=== PATIENT | male | born 1990 | race Two or more races ===

== ENCOUNTER 2022-01-22 10:54 | Inpatient (IN) | payer OTHER ==
[2022-01-22] MEDS ORDERED: MAGNESIUM CITRATE 300 ML BOTTLE PO PRN (12:55)
[2022-01-22] MEDS ORDERED: MAGNESIUM HYDROX 2400MG/30ML ORAL SUSPENSION 30 ML CUP PO PRN (12:55)
[2022-01-22] MEDS ORDERED: LOPERAMIDE HCL 2 MG CAPSULE PO PRN (12:55)
[2022-01-22] MEDS ORDERED: DICYCLOMINE HCL 10 MG CAPSULE PO PRN (12:55)
[2022-01-22] MEDS ORDERED: cloNIDine HCL 0.1 MG TABLET PO ONE (12:55)
[2022-01-22] MEDS ORDERED: IBUPROFEN 400 MG TABLET (FP) PO PRN (12:55)
[2022-01-22] MEDS ORDERED: NALOXONE HCL (KLOXXADO) 8 MG SPRAY NS PRN (12:55)
[2022-01-22] MEDS ORDERED: BENZOCAINE/MENTHOL (CHLORASEPTIC ) LOZENGE MM PRN (12:55)
[2022-01-22] MEDS ORDERED: ONDANSETRON *ODT* 4 MG TABLET SL PRN (12:55)
[2022-01-22] MEDS ORDERED: MAG HYDROX/AL HYDROX/SIMETH 30 ML UNIT-DOSE CUP PO PRN (12:55)
[2022-01-22] MEDS ORDERED: BISMUTH SUBSALICYLATE 262 MG/15 ML BTL PO PRN (12:55)
[2022-01-22] MEDS ORDERED: ACETAMINOPHEN 325 MG TABLET (FP) PO PRN ×2 (12:55)
[2022-01-22] MEDS ORDERED: BUPRENORPHINE HCL 150 MCG, BUPRENORPHINE HCL 75 MCG BC PRN (12:55)
[2022-01-22] MEDS ORDERED: BUPRENORPHINE HCL 150 MCG, BUPRENORPHINE HCL 75 MCG BC ONE (12:55)
[2022-01-22] MEDS ORDERED: ALBUTEROL SO4 HFA INHALER IH PRN (13:01)
[2022-01-22] MEDS ORDERED: BUPRENORPHINE HCL 150 MCG FILM BC ONE (13:22)
[2022-01-22] MEDS ORDERED: BUPRENORPHINE HCL 75 MCG FILM BC ONE (13:22)
[2022-01-22] MEDS ORDERED: cloNIDine HCL 0.1 MG TABLET ONE (13:23)
[2022-01-22] MEDS ORDERED: diazePAM 5 MG TABLET ONE (13:35)
[2022-01-22] MEDS: diazePAM 5 MG TABLET PO PRN ×2 (13:38→20:20)
[2022-01-22] MEDS: hydrOXYzine PAMOATE 25 MG CAPSULE (FP) PO SCH ×3 (15:11→22:50)
[2022-01-22] MEDS: PRENATAL VITAMINS W/ FOLIC ACID TABLET (FP) PO SCH (15:11)
[2022-01-22 15:14] LABS: HEMATOCRIT 45.8 % (35.4-49); HEMOGLOBIN 15.1 GM/dL (11.7-16.9); MCH 27.6 pg (25.7-33.7); MEAN CELL VOLUME 83.7 fl (80-96); MEAN PLT VOLUME 9.8 fl (7.5-11.1); PLATELET COUNT 232 10^3/uL (134-434); RBC 5.47 M/mm3 (4.00-5.60); RDW 13.5 % (11.9-15.9); WHITE BLOOD COUNT 6.5 K/mm3 (4.0-10.0)
[2022-01-22 15:34] LABS: CALCIUM 9.5 mg/dL (8.5-10.1)
[2022-01-22 15:36] LABS: ALBUMIN 3.9 g/dl (3.4-5.0)
[2022-01-22 15:39] LABS: CREATININE 0.7 mg/dL (0.55-1.3)
[2022-01-22 15:40] LABS: BILIRUBIN,TOTAL 0.9 mg/dL (0.2-1); TOT PROT 7.9 g/dl (6.4-8.2)
[2022-01-22] MEDS: cloNIDine HCL 0.1 MG TABLET PO PRN (18:01)
[2022-01-22] MEDS: THIAMINE HCL 100 MG TABLET (FP) PO SCH (22:50)
[2022-01-22] MEDS: MELATONIN 5 MG TABLETS PO SCH (22:50)
[2022-01-23] MEDS ORDERED: BUPRENORPHINE HCL 150 MCG, BUPRENORPHINE HCL 75 MCG BC PRN
[2022-01-23] MEDS: BUPRENORPHINE HCL 150 MCG, BUPRENORPHINE HCL 75 MCG BC SCH ×2 (05:52→17:57)
[2022-01-23] MEDS: hydrOXYzine PAMOATE 25 MG CAPSULE (FP) PO SCH ×5 (05:52→23:16)
[2022-01-23] MEDS: PRENATAL VITAMINS W/ FOLIC ACID TABLET (FP) PO SCH (10:24)
[2022-01-23] MEDS: NICOTINE 14 MG/24 HOURS TOPICAL PATCH TD SCH (10:24)
[2022-01-23] MEDS: diazePAM 5 MG TABLET PO PRN ×3 (10:25→20:40)
[2022-01-23] MEDS: cloNIDine HCL 0.1 MG TABLET PO PRN (16:46)
[2022-01-23] MEDS: MELATONIN 5 MG TABLETS PO SCH (23:16)
[2022-01-23] MEDS: THIAMINE HCL 100 MG TABLET (FP) PO SCH (23:16)
[2022-01-24] MEDS: diazePAM 5 MG TABLET PO PRN ×4 (04:44→21:01)
[2022-01-24] MEDS: cloNIDine HCL 0.1 MG TABLET PO PRN ×4 (04:44→19:11)
[2022-01-24] MEDS: hydrOXYzine PAMOATE 25 MG CAPSULE (FP) PO SCH ×5 (05:52→21:01)
[2022-01-24] MEDS: BUPRENORPHINE HCL 450 MCG FILM BC SCH ×2 (05:52→17:29)
[2022-01-24] MEDS: METHOCARBAMOL 500 MG TABLET PO PRN ×3 (07:35→21:28)
[2022-01-24] MEDS: IBUPROFEN 600 MG TABLET (FP) PO PRN ×2 (07:35→21:28)
[2022-01-24] MEDS: PRENATAL VITAMINS W/ FOLIC ACID TABLET (FP) PO SCH (09:47)
[2022-01-24] MEDS: NICOTINE 14 MG/24 HOURS TOPICAL PATCH TD SCH (09:48)
[2022-01-24] MEDS: NICOTINE 10 MG CARTRIDGE (INHALER) IH PRN ×3 (09:51→18:30)
[2022-01-24] MEDS: THIAMINE HCL 100 MG TABLET (FP) PO SCH (21:01)
[2022-01-24] MEDS: MELATONIN 5 MG TABLETS PO SCH (22:00)
[2022-01-25] MEDS: hydrOXYzine PAMOATE 25 MG CAPSULE (FP) PO SCH ×3 (05:24→13:09)
[2022-01-25] MEDS: diazePAM 5 MG TABLET PO PRN ×2 (05:24→11:33)
[2022-01-25] MEDS: BUPRENORPHINE/NALOXONE 4 MG/1 MG FILM PACKET SL SCH ×2 (05:25→05:46)
[2022-01-25] MEDS: cloNIDine HCL 0.1 MG TABLET PO PRN ×3 (06:29→14:45)
[2022-01-25] MEDS: METHOCARBAMOL 500 MG TABLET PO PRN (07:47)
[2022-01-25] MEDS: NICOTINE 14 MG/24 HOURS TOPICAL PATCH TD SCH (10:16)
[2022-01-25] MEDS: PRENATAL VITAMINS W/ FOLIC ACID TABLET (FP) PO SCH (10:16)
[2022-01-25] MEDS: NICOTINE 10 MG CARTRIDGE (INHALER) IH PRN (10:18)
[2022-01-25] MEDS ORDERED: VENLAFAXINE HCL 75 MG E.R. CAPSULES PO SCH (12:45)
[2022-01-25 13:13] VITALS: BP 96/57; PULSE 107; RESP 18; TEMP 98
[2022-01-26] MEDS ORDERED: BUPRENORPHINE/NALOXONE 8 MG/2 MG FILM PACKET SL ONE (06:00)
== END 2022-01-25 15:01 | DRG 773 ==
LOC: YASAS 10:54 → Y3N 13:40
PROVIDERS: ADMIT Allergy & Immunology; ATTEND Surgery
PROC: HZ2ZZZZ Detoxification Services for Substance Abuse Treatment (ICD-10-PCS; principal; 2022-01-22)
DX: F11.23 Opioid dependence with withdrawal (principal); F17.210 Nicotine dependence, cigarettes, uncomplicated; F19.280 Other psychoactive substance dependence with psychoactive substance-induced anxiety disorder; F19.282 Other psychoactive substance dependence with psychoactive substance-induced sleep disorder; R45.851 Suicidal ideations; J45.909 Unspecified asthma, uncomplicated; Z87.09 Personal history of other diseases of the respiratory system; Z28.311 Partially vaccinated for COVID-19
CPT/HCPCS: 36415; 80053; 85027; 86780; C9803-CS; U0003; U0005

== ENCOUNTER 2022-04-12 12:50 | Inpatient (IN) | payer OTHER ==
[2022-04-12 14:09] VITALS: BMI 22.8
[2022-04-12] MEDS ORDERED: LOPERAMIDE HCL 2 MG CAPSULE PO PRN (15:38)
[2022-04-12] MEDS ORDERED: ACETAMINOPHEN 325 MG TABLET (FP) PO PRN ×2 (15:38)
[2022-04-12] MEDS ORDERED: POLYETHYLENE GLYCOL (HEALTHYLAX) 3350 17 GM PACKET PO PRN (15:38)
[2022-04-12] MEDS ORDERED: BISMUTH SUBSALICYLATE 524 MG/30 ML PO PRN (15:38)
[2022-04-12] MEDS ORDERED: NALOXONE HCL (KLOXXADO) 8 MG SPRAY NS PRN (15:38)
[2022-04-12] MEDS ORDERED: MAG HYDROX/AL HYDROX/SIMETH 30 ML UNIT-DOSE CUP PO PRN (15:38)
[2022-04-12] MEDS ORDERED: MAGNESIUM HYDROX 2400MG/30ML ORAL SUSPENSION 30 ML CUP PO PRN (15:38)
[2022-04-12] MEDS ORDERED: IBUPROFEN 600 MG TABLET (FP) PO PRN (15:38)
[2022-04-12] MEDS ORDERED: ONDANSETRON *ODT* 4 MG TABLET SL PRN (15:38)
[2022-04-12] MEDS ORDERED: BENZOCAINE/MENTHOL (CHLORASEPTIC ) LOZENGE MM PRN (15:38)
[2022-04-12] MEDS ORDERED: NICOTINE 21 MG/24 HOURS TOPICAL PATCH TD PRN (15:38)
[2022-04-12] MEDS ORDERED: DICYCLOMINE HCL 10 MG CAPSULE PO PRN (15:38)
[2022-04-12] MEDS ORDERED: IBUPROFEN 400 MG TABLET (FP) PO PRN (15:38)
[2022-04-12] MEDS ORDERED: BUPRENORPHINE/NALOXONE 4 MG/1 MG FILM PACKET SL SCH (15:45)
[2022-04-12] MEDS ORDERED: BUPRENORPHINE HCL 150 MCG, BUPRENORPHINE HCL 75 MCG BC ONE (16:01)
[2022-04-12] MEDS ORDERED: BUPRENORPHINE HCL 150 MCG, BUPRENORPHINE HCL 75 MCG BC PRN (16:01)
[2022-04-12] MEDS ORDERED: BUPRENORPHINE HCL 150 MCG FILM BC ONE (16:12)
[2022-04-12] MEDS ORDERED: BUPRENORPHINE HCL 75 MCG FILM BC ONE (16:13)
[2022-04-12] MEDS: hydrOXYzine PAMOATE 25 MG CAPSULE (FP) PO PRN (17:27)
[2022-04-12] MEDS: NICOTINE 10 MG CARTRIDGE (INHALER) IH PRN (17:30)
[2022-04-12] MEDS: diazePAM 5 MG TABLET PO PRN (17:30)
[2022-04-12] MEDS: MELATONIN 5 MG TABLETS PO SCH (22:43)
[2022-04-12] MEDS: THIAMINE HCL 100 MG TABLET (FP) PO SCH (22:43)
[2022-04-13] MEDS ORDERED: BUPRENORPHINE HCL 150 MCG, BUPRENORPHINE HCL 75 MCG BC PRN
[2022-04-13] MEDS ORDERED: BUPRENORPHINE/NALOXONE 8 MG/2 MG FILM PACKET SL ONE (06:00)
[2022-04-13] MEDS ORDERED: BUPRENORPHINE HCL 150 MCG, BUPRENORPHINE HCL 75 MCG BC SCH (06:00)
[2022-04-13] MEDS: diazePAM 5 MG TABLET PO PRN (10:37)
[2022-04-13] MEDS: PRENATAL VITAMINS W/ FOLIC ACID TABLET (FP) PO SCH (10:37)
[2022-04-13] MEDS: METHOCARBAMOL 500 MG TABLET PO PRN ×2 (10:37→23:18)
[2022-04-13] MEDS ORDERED: cloNIDine HCL 0.1 MG TABLET PO PRN (10:58)
[2022-04-13] MEDS: NICOTINE 10 MG CARTRIDGE (INHALER) IH PRN (15:30)
[2022-04-13] MEDS: hydrOXYzine PAMOATE 25 MG CAPSULE (FP) PO PRN ×2 (15:37→17:38)
[2022-04-13] MEDS: cloNIDine HCL 0.1 MG TABLET PO PRN ×2 (17:40→23:18)
[2022-04-13] MEDS: MELATONIN 5 MG TABLETS PO SCH ×2 (22:26→23:18)
[2022-04-13] MEDS: THIAMINE HCL 100 MG TABLET (FP) PO SCH ×2 (22:26→23:19)
[2022-04-14] MEDS: cloNIDine HCL 0.1 MG TABLET PO PRN ×3 (05:56→20:29)
[2022-04-14] MEDS ORDERED: BUPRENORPHINE HCL 450 MCG FILM BC SCH (06:00)
[2022-04-14] MEDS: METHOCARBAMOL 500 MG TABLET PO PRN (09:12)
[2022-04-14] MEDS: hydrOXYzine PAMOATE 25 MG CAPSULE (FP) PO PRN (09:12)
[2022-04-14] MEDS: PRENATAL VITAMINS W/ FOLIC ACID TABLET (FP) PO SCH (09:12)
[2022-04-14] MEDS: NICOTINE 10 MG CARTRIDGE (INHALER) IH PRN ×2 (09:14→20:29)
[2022-04-14] MEDS ORDERED: methaDONE HCL 10 MG TABLET (FOR DETOX USE ONLY) PO ONE (10:00)
[2022-04-14 11:49] LABS: HEMATOCRIT 44.8 % (35.4-49); HEMOGLOBIN 14.8 GM/dL (11.7-16.9); MCH 27.4 pg (25.7-33.7); MCHC 33.1 g/dl (32.0-35.9); MEAN CELL VOLUME 82.7 fl (80-96); MEAN PLT VOLUME 9.6 fl (7.5-11.1); PLATELET COUNT 247 10^3/uL (134-434); RBC 5.41 M/mm3 (4.00-5.60); RDW 14.8 % (11.9-15.9); WHITE BLOOD COUNT 10.1 K/mm3 (4.0-10.0)
[2022-04-14 11:59] LABS: ALBUMIN 3.7 g/dl (3.4-5.0); BLOOD UREA NITROGEN 15.1 mg/dL (7-18); CALCIUM 9.4 mg/dL (8.5-10.1); CREATININE 0.7 mg/dL (0.55-1.3)
[2022-04-14 12:01] LABS: TOT PROT 7.3 g/dl (6.4-8.2)
[2022-04-14] MEDS ORDERED: GABAPENTIN 100 MG CAPSULE PO ONE (12:11)
[2022-04-14] MEDS ORDERED: VENLAFAXINE HCL 75 MG E.R. CAPSULES PO SCH (12:15)
[2022-04-14] MEDS: VENLAFAXINE HCL 75 MG E.R. CAPSULES PO SCH (12:37)
[2022-04-14] MEDS: GABAPENTIN 100 MG CAPSULE PO SCH ×2 (15:26→22:18)
[2022-04-14] MEDS: hydrOXYzine PAMOATE 50 MG CAPSULE (FP) PO PRN (17:34)
[2022-04-14] MEDS: SUVOREXANT 10 MG TABLET PO PRN (22:18)
[2022-04-14] MEDS: THIAMINE HCL 100 MG TABLET (FP) PO SCH (22:18)
[2022-04-15] MEDS: GABAPENTIN 100 MG CAPSULE PO SCH ×3 (05:42→22:13)
[2022-04-15] MEDS: NICOTINE 10 MG CARTRIDGE (INHALER) IH PRN ×4 (05:46→22:16)
[2022-04-15] MEDS: cloNIDine HCL 0.1 MG TABLET PO PRN ×2 (05:46→18:36)
[2022-04-15] MEDS ORDERED: BUPRENORPHINE/NALOXONE 4 MG/1 MG FILM PACKET SL SCH (06:00)
[2022-04-15] MEDS: VENLAFAXINE HCL 75 MG E.R. CAPSULES PO SCH (09:21)
[2022-04-15] MEDS: METHOCARBAMOL 500 MG TABLET PO PRN ×2 (09:21→22:13)
[2022-04-15] MEDS: PRENATAL VITAMINS W/ FOLIC ACID TABLET (FP) PO SCH (09:25)
[2022-04-15] MEDS ORDERED: methaDONE HCL 10 MG TABLET (FOR DETOX USE ONLY) PO ONE (10:00)
[2022-04-15] MEDS: hydrOXYzine PAMOATE 50 MG CAPSULE (FP) PO PRN (22:13)
[2022-04-15] MEDS: THIAMINE HCL 100 MG TABLET (FP) PO SCH (22:13)
[2022-04-15] MEDS: SUVOREXANT 10 MG TABLET PO PRN (22:14)
[2022-04-16] MEDS ORDERED: BUPRENORPHINE/NALOXONE 8 MG/2 MG FILM PACKET SL ONE (06:00)
[2022-04-16] MEDS: GABAPENTIN 100 MG CAPSULE PO SCH ×3 (06:13→22:00)
[2022-04-16] MEDS: NICOTINE 10 MG CARTRIDGE (INHALER) IH PRN ×2 (09:12→17:05)
[2022-04-16] MEDS: METHOCARBAMOL 500 MG TABLET PO PRN (09:54)
[2022-04-16] MEDS: VENLAFAXINE HCL 75 MG E.R. CAPSULES PO SCH (09:54)
[2022-04-16] MEDS: PRENATAL VITAMINS W/ FOLIC ACID TABLET (FP) PO SCH (09:54)
[2022-04-16] MEDS ORDERED: methaDONE HCL 10 MG TABLET (FOR DETOX USE ONLY) PO ONE (10:00)
[2022-04-16] MEDS: diazePAM 5 MG TABLET PO PRN ×4 (11:00→23:02)
[2022-04-16] MEDS: NICOTINE POLACRILEX 4 MG GUM BUC PRN (20:51)
[2022-04-16] MEDS: THIAMINE HCL 100 MG TABLET (FP) PO SCH (22:00)
[2022-04-16] MEDS: SUVOREXANT 10 MG TABLET PO PRN (22:03)
[2022-04-17 06:27] VITALS: RESP 18
[2022-04-17] MEDS: GABAPENTIN 100 MG CAPSULE PO SCH ×2 (06:48→13:27)
[2022-04-17] MEDS: diazePAM 5 MG TABLET PO PRN ×2 (06:57→11:02)
[2022-04-17] MEDS: PRENATAL VITAMINS W/ FOLIC ACID TABLET (FP) PO SCH (09:53)
[2022-04-17] MEDS: VENLAFAXINE HCL 75 MG E.R. CAPSULES PO SCH (09:54)
[2022-04-17] MEDS ORDERED: methaDONE HCL 10 MG TABLET (FOR DETOX USE ONLY) PO ONE (10:00)
[2022-04-17 13:55] VITALS: BP 106/67; PULSE 103; TEMP 98
[2022-04-17] MEDS: NICOTINE 10 MG CARTRIDGE (INHALER) IH PRN (15:09)
[2022-04-17] MEDS: NICOTINE POLACRILEX 4 MG GUM BUC PRN (15:09)
== END 2022-04-17 15:39 | disposition other institution (70) | DRG 773 ==
LOC: YASAS 12:50 → Y6N 16:23
PROVIDERS: ADMIT Allergy & Immunology; ATTEND Surgery
PROC: HZ2ZZZZ Detoxification Services for Substance Abuse Treatment (ICD-10-PCS; principal; 2022-04-12)
DX: F11.23 Opioid dependence with withdrawal (principal); F17.210 Nicotine dependence, cigarettes, uncomplicated; F19.280 Other psychoactive substance dependence with psychoactive substance-induced anxiety disorder; F19.282 Other psychoactive substance dependence with psychoactive substance-induced sleep disorder; F40.10 Social phobia, unspecified; J45.20 Mild intermittent asthma, uncomplicated; Z51.81 Encounter for therapeutic drug level monitoring; Z56.0 Unemployment, unspecified
CPT/HCPCS: 36415; 80053; 85027; 86780; 87811; C9803-CS; U0003; U0005

== ENCOUNTER 2022-04-17 15:42 | Inpatient (IN) | payer OTHER ==
[2022-04-17] MEDS ORDERED: MAGNESIUM HYDROX 2400MG/30ML ORAL SUSPENSION 30 ML CUP PO PRN (16:17)
[2022-04-17] MEDS ORDERED: POLYETHYLENE GLYCOL (HEALTHYLAX) 3350 17 GM PACKET PO PRN (16:17)
[2022-04-17] MEDS ORDERED: guaiFENesin 200 MG/10 ML 10 ML UNIT-DOSE CUPS PO PRN (16:17)
[2022-04-17] MEDS ORDERED: P-EPHED 60MG/TRIPROLIDI 2.5MG TABLET PO PRN (16:17)
[2022-04-17] MEDS ORDERED: BENZOCAINE/MENTHOL (CHLORASEPTIC ) LOZENGE MM PRN (16:17)
[2022-04-17] MEDS ORDERED: LOPERAMIDE HCL 2 MG CAPSULE PO PRN (16:17)
[2022-04-17] MEDS ORDERED: IBUPROFEN 400 MG TABLET (FP) PO PRN (16:17)
[2022-04-17] MEDS ORDERED: ACETAMINOPHEN 325 MG TABLET (FP) PO PRN (16:17)
[2022-04-17] MEDS ORDERED: MAG HYDROX/AL HYDROX/SIMETH 30 ML UNIT-DOSE CUP PO PRN (16:17)
[2022-04-17] MEDS: NICOTINE 10 MG CARTRIDGE (INHALER) IH PRN (18:19)
[2022-04-17] MEDS: hydrOXYzine PAMOATE 25 MG CAPSULE (FP) PO PRN (18:19)
[2022-04-17] MEDS: THIAMINE HCL 100 MG TABLET (FP) PO SCH (21:33)
[2022-04-17] MEDS ORDERED: MELATONIN 5 MG TABLETS PO SCH (22:00)
[2022-04-18] MEDS: hydrOXYzine PAMOATE 25 MG CAPSULE (FP) PO PRN (02:40)
[2022-04-18] MEDS: NICOTINE 7 MG/24 HOURS TOPICAL PATCH TD SCH (09:46)
[2022-04-18] MEDS: PRENATAL VITAMINS W/ FOLIC ACID TABLET (FP) PO SCH (09:46)
[2022-04-18] MEDS: NICOTINE 10 MG CARTRIDGE (INHALER) IH PRN ×2 (09:47→21:14)
[2022-04-18] MEDS: hydrOXYzine PAMOATE 50 MG CAPSULE (FP) PO PRN ×3 (10:19→21:15)
[2022-04-18] MEDS: VENLAFAXINE HCL 75 MG E.R. CAPSULES PO SCH (10:19)
[2022-04-18] MEDS: GABAPENTIN 100 MG CAPSULE PO SCH ×2 (13:07→21:15)
[2022-04-18] MEDS: BUPRENORPHINE/NALOXONE 2 MG/0.5 MG FILM PACKET SL SCH (14:44)
[2022-04-18] MEDS: SUVOREXANT 10 MG TABLET PO PRN (21:15)
[2022-04-18] MEDS: THIAMINE HCL 100 MG TABLET (FP) PO SCH (21:15)
[2022-04-19] MEDS: GABAPENTIN 100 MG CAPSULE PO SCH ×3 (06:53→21:21)
[2022-04-19] MEDS: hydrOXYzine PAMOATE 50 MG CAPSULE (FP) PO PRN ×3 (08:04→21:22)
[2022-04-19] MEDS: NICOTINE 10 MG CARTRIDGE (INHALER) IH PRN ×3 (08:04→21:22)
[2022-04-19] MEDS: NICOTINE 7 MG/24 HOURS TOPICAL PATCH TD SCH (09:27)
[2022-04-19] MEDS: PRENATAL VITAMINS W/ FOLIC ACID TABLET (FP) PO SCH (09:27)
[2022-04-19] MEDS: BUPRENORPHINE/NALOXONE 2 MG/0.5 MG FILM PACKET SL SCH ×2 (09:27→17:59)
[2022-04-19] MEDS: VENLAFAXINE HCL 75 MG E.R. CAPSULES PO SCH (09:27)
[2022-04-19] MEDS: THIAMINE HCL 100 MG TABLET (FP) PO SCH (21:21)
[2022-04-19] MEDS: SUVOREXANT 10 MG TABLET PO PRN (21:22)
[2022-04-20] MEDS: GABAPENTIN 100 MG CAPSULE PO SCH ×3 (07:39→21:45)
[2022-04-20] MEDS: BUPRENORPHINE/NALOXONE 2 MG/0.5 MG FILM PACKET SL SCH (07:39)
[2022-04-20] MEDS: NICOTINE 10 MG CARTRIDGE (INHALER) IH PRN ×3 (08:57→21:45)
[2022-04-20] MEDS: NICOTINE 7 MG/24 HOURS TOPICAL PATCH TD SCH (09:45)
[2022-04-20] MEDS: VENLAFAXINE HCL 75 MG E.R. CAPSULES PO SCH (09:45)
[2022-04-20] MEDS: PRENATAL VITAMINS W/ FOLIC ACID TABLET (FP) PO SCH (09:46)
[2022-04-20] MEDS: hydrOXYzine PAMOATE 50 MG CAPSULE (FP) PO PRN ×2 (10:32→19:56)
[2022-04-20] MEDS: BUPRENORPHINE/NALOXONE 4 MG/1 MG FILM PACKET SL SCH (17:58)
[2022-04-20] MEDS: THIAMINE HCL 100 MG TABLET (FP) PO SCH (21:45)
[2022-04-20] MEDS: SUVOREXANT 10 MG TABLET PO PRN (21:47)
[2022-04-21] MEDS: BUPRENORPHINE/NALOXONE 4 MG/1 MG FILM PACKET SL SCH ×2 (07:39→17:59)
[2022-04-21] MEDS: GABAPENTIN 100 MG CAPSULE PO SCH (07:39)
[2022-04-21] MEDS: NICOTINE 10 MG CARTRIDGE (INHALER) IH PRN ×3 (09:58→21:15)
[2022-04-21] MEDS: PRENATAL VITAMINS W/ FOLIC ACID TABLET (FP) PO SCH (09:58)
[2022-04-21] MEDS: VENLAFAXINE HCL 75 MG E.R. CAPSULES PO SCH (09:58)
[2022-04-21] MEDS: NICOTINE 7 MG/24 HOURS TOPICAL PATCH TD SCH (09:58)
[2022-04-21] MEDS: hydrOXYzine PAMOATE 50 MG CAPSULE (FP) PO PRN (11:46)
[2022-04-21] MEDS: GABAPENTIN 300 MG CAPSULE PO SCH ×2 (13:40→21:14)
[2022-04-21] MEDS ORDERED: NICOTINE 7 MG/24 HOURS TOPICAL PATCH TD PRN (14:41)
[2022-04-21] MEDS: THIAMINE HCL 100 MG TABLET (FP) PO SCH (21:13)
[2022-04-21] MEDS: SUVOREXANT 10 MG TABLET PO PRN (21:14)
[2022-04-22] MEDS: GABAPENTIN 300 MG CAPSULE PO SCH ×3 (07:32→21:06)
[2022-04-22] MEDS: BUPRENORPHINE/NALOXONE 4 MG/1 MG FILM PACKET SL SCH ×2 (07:32→18:15)
[2022-04-22] MEDS: NICOTINE 10 MG CARTRIDGE (INHALER) IH PRN ×4 (07:33→22:26)
[2022-04-22] MEDS: VENLAFAXINE HCL 75 MG E.R. CAPSULES PO SCH (09:34)
[2022-04-22] MEDS: PRENATAL VITAMINS W/ FOLIC ACID TABLET (FP) PO SCH (09:34)
[2022-04-22] MEDS: hydrOXYzine PAMOATE 50 MG CAPSULE (FP) PO PRN ×2 (12:24→21:06)
[2022-04-22] MEDS: THIAMINE HCL 100 MG TABLET (FP) PO SCH (21:06)
[2022-04-22] MEDS: SUVOREXANT 10 MG TABLET PO PRN (21:06)
[2022-04-23] MEDS: GABAPENTIN 300 MG CAPSULE PO SCH ×3 (07:39→21:26)
[2022-04-23] MEDS: BUPRENORPHINE/NALOXONE 4 MG/1 MG FILM PACKET SL SCH ×2 (07:39→18:12)
[2022-04-23] MEDS: NICOTINE 10 MG CARTRIDGE (INHALER) IH PRN ×3 (08:01→21:27)
[2022-04-23] MEDS: PRENATAL VITAMINS W/ FOLIC ACID TABLET (FP) PO SCH (10:03)
[2022-04-23] MEDS: VENLAFAXINE HCL 75 MG E.R. CAPSULES PO SCH (10:03)
[2022-04-23] MEDS: hydrOXYzine PAMOATE 50 MG CAPSULE (FP) PO PRN ×2 (10:05→21:26)
[2022-04-23] MEDS: THIAMINE HCL 100 MG TABLET (FP) PO SCH (21:26)
[2022-04-23] MEDS: SUVOREXANT 10 MG TABLET PO PRN (21:26)
[2022-04-24] MEDS: BUPRENORPHINE/NALOXONE 4 MG/1 MG FILM PACKET SL SCH ×2 (07:49→18:18)
[2022-04-24] MEDS: GABAPENTIN 300 MG CAPSULE PO SCH ×3 (07:49→21:25)
[2022-04-24] MEDS: VENLAFAXINE HCL 75 MG E.R. CAPSULES PO SCH (10:02)
[2022-04-24] MEDS: NICOTINE 10 MG CARTRIDGE (INHALER) IH PRN ×4 (10:03→21:26)
[2022-04-24] MEDS: PRENATAL VITAMINS W/ FOLIC ACID TABLET (FP) PO SCH (10:03)
[2022-04-24] MEDS: SUVOREXANT 10 MG TABLET PO PRN (21:25)
[2022-04-24] MEDS: THIAMINE HCL 100 MG TABLET (FP) PO SCH (21:25)
[2022-04-24] MEDS: hydrOXYzine PAMOATE 50 MG CAPSULE (FP) PO PRN (21:25)
[2022-04-25] MEDS: BUPRENORPHINE/NALOXONE 4 MG/1 MG FILM PACKET SL SCH ×2 (07:52→18:22)
[2022-04-25] MEDS: NICOTINE 10 MG CARTRIDGE (INHALER) IH PRN ×3 (07:53→18:23)
[2022-04-25] MEDS: GABAPENTIN 300 MG CAPSULE PO SCH ×3 (07:53→21:15)
[2022-04-25] MEDS: PRENATAL VITAMINS W/ FOLIC ACID TABLET (FP) PO SCH (09:40)
[2022-04-25] MEDS: VENLAFAXINE HCL 75 MG E.R. CAPSULES PO SCH (09:40)
[2022-04-25] MEDS: hydrOXYzine PAMOATE 50 MG CAPSULE (FP) PO PRN (21:15)
[2022-04-25] MEDS: THIAMINE HCL 100 MG TABLET (FP) PO SCH (21:15)
[2022-04-25] MEDS: SUVOREXANT 10 MG TABLET PO PRN (21:16)
[2022-04-26] MEDS: GABAPENTIN 300 MG CAPSULE PO SCH ×3 (07:54→21:15)
[2022-04-26] MEDS: BUPRENORPHINE/NALOXONE 4 MG/1 MG FILM PACKET SL SCH ×2 (07:54→18:25)
[2022-04-26] MEDS: NICOTINE 10 MG CARTRIDGE (INHALER) IH PRN ×3 (09:38→21:14)
[2022-04-26] MEDS: PRENATAL VITAMINS W/ FOLIC ACID TABLET (FP) PO SCH (09:38)
[2022-04-26] MEDS: VENLAFAXINE HCL 75 MG E.R. CAPSULES PO SCH (09:38)
[2022-04-26] MEDS: hydrOXYzine PAMOATE 50 MG CAPSULE (FP) PO PRN ×2 (12:09→21:16)
[2022-04-26] MEDS: THIAMINE HCL 100 MG TABLET (FP) PO SCH (21:14)
[2022-04-26] MEDS: SUVOREXANT 10 MG TABLET PO PRN ×2 (21:15)
[2022-04-27] MEDS: BUPRENORPHINE/NALOXONE 4 MG/1 MG FILM PACKET SL SCH ×2 (07:48→18:05)
[2022-04-27] MEDS: GABAPENTIN 300 MG CAPSULE PO SCH ×3 (07:48→21:15)
[2022-04-27] MEDS: PRENATAL VITAMINS W/ FOLIC ACID TABLET (FP) PO SCH (09:57)
[2022-04-27] MEDS: VENLAFAXINE HCL 75 MG E.R. CAPSULES PO SCH (09:57)
[2022-04-27] MEDS: NICOTINE 10 MG CARTRIDGE (INHALER) IH PRN ×3 (12:42→21:15)
[2022-04-27] MEDS: hydrOXYzine PAMOATE 50 MG CAPSULE (FP) PO PRN (21:15)
[2022-04-27] MEDS: SUVOREXANT 10 MG TABLET PO PRN (21:15)
[2022-04-27] MEDS: THIAMINE HCL 100 MG TABLET (FP) PO SCH (21:15)
[2022-04-28] MEDS: BUPRENORPHINE/NALOXONE 4 MG/1 MG FILM PACKET SL SCH ×2 (07:41→18:04)
[2022-04-28] MEDS: GABAPENTIN 300 MG CAPSULE PO SCH ×3 (07:41→21:15)
[2022-04-28] MEDS: NICOTINE 10 MG CARTRIDGE (INHALER) IH PRN ×2 (07:42→13:31)
[2022-04-28] MEDS: VENLAFAXINE HCL 75 MG E.R. CAPSULES PO SCH (10:02)
[2022-04-28] MEDS: PRENATAL VITAMINS W/ FOLIC ACID TABLET (FP) PO SCH (10:02)
[2022-04-28] MEDS: hydrOXYzine PAMOATE 50 MG CAPSULE (FP) PO PRN (21:14)
[2022-04-28] MEDS: THIAMINE HCL 100 MG TABLET (FP) PO SCH (21:14)
[2022-04-28] MEDS: SUVOREXANT 10 MG TABLET PO PRN (21:15)
[2022-04-29] MEDS: BUPRENORPHINE/NALOXONE 4 MG/1 MG FILM PACKET SL SCH ×2 (07:53→18:07)
[2022-04-29] MEDS: GABAPENTIN 300 MG CAPSULE PO SCH ×3 (07:53→21:25)
[2022-04-29] MEDS: NICOTINE 10 MG CARTRIDGE (INHALER) IH PRN ×3 (07:56→21:26)
[2022-04-29] MEDS: VENLAFAXINE HCL 75 MG E.R. CAPSULES PO SCH (09:42)
[2022-04-29] MEDS: PRENATAL VITAMINS W/ FOLIC ACID TABLET (FP) PO SCH (09:42)
[2022-04-29] MEDS: THIAMINE HCL 100 MG TABLET (FP) PO SCH (21:25)
[2022-04-29] MEDS: hydrOXYzine PAMOATE 50 MG CAPSULE (FP) PO PRN (21:25)
[2022-04-29] MEDS: SUVOREXANT 10 MG TABLET PO PRN (21:26)
[2022-04-30] MEDS: BUPRENORPHINE/NALOXONE 4 MG/1 MG FILM PACKET SL SCH ×2 (07:55→18:06)
[2022-04-30] MEDS: GABAPENTIN 300 MG CAPSULE PO SCH ×3 (07:56→21:30)
[2022-04-30] MEDS: NICOTINE 10 MG CARTRIDGE (INHALER) IH PRN ×3 (09:58→21:30)
[2022-04-30] MEDS: VENLAFAXINE HCL 75 MG E.R. CAPSULES PO SCH (09:58)
[2022-04-30] MEDS: PRENATAL VITAMINS W/ FOLIC ACID TABLET (FP) PO SCH (09:59)
[2022-04-30] MEDS: hydrOXYzine PAMOATE 50 MG CAPSULE (FP) PO PRN (21:30)
[2022-04-30] MEDS: SUVOREXANT 10 MG TABLET PO PRN (21:31)
[2022-04-30] MEDS: THIAMINE HCL 100 MG TABLET (FP) PO SCH (21:31)
[2022-05-01] MEDS: BUPRENORPHINE/NALOXONE 4 MG/1 MG FILM PACKET SL SCH ×2 (07:41→18:03)
[2022-05-01] MEDS: GABAPENTIN 300 MG CAPSULE PO SCH ×3 (07:42→21:13)
[2022-05-01] MEDS: PRENATAL VITAMINS W/ FOLIC ACID TABLET (FP) PO SCH (10:02)
[2022-05-01] MEDS: VENLAFAXINE HCL 75 MG E.R. CAPSULES PO SCH (10:02)
[2022-05-01] MEDS: NICOTINE 10 MG CARTRIDGE (INHALER) IH PRN ×2 (12:30→18:03)
[2022-05-01] MEDS: hydrOXYzine PAMOATE 50 MG CAPSULE (FP) PO PRN (21:13)
[2022-05-01] MEDS: THIAMINE HCL 100 MG TABLET (FP) PO SCH (21:13)
[2022-05-01] MEDS: SUVOREXANT 10 MG TABLET PO PRN (21:14)
[2022-05-02] MEDS: BUPRENORPHINE/NALOXONE 4 MG/1 MG FILM PACKET SL SCH ×2 (06:40→18:35)
[2022-05-02] MEDS: GABAPENTIN 300 MG CAPSULE PO SCH ×3 (06:41→21:13)
[2022-05-02] MEDS: PRENATAL VITAMINS W/ FOLIC ACID TABLET (FP) PO SCH (10:13)
[2022-05-02] MEDS: VENLAFAXINE HCL 75 MG E.R. CAPSULES PO SCH (10:13)
[2022-05-02] MEDS: NICOTINE 10 MG CARTRIDGE (INHALER) IH PRN (12:37)
[2022-05-02] MEDS: THIAMINE HCL 100 MG TABLET (FP) PO SCH (21:13)
[2022-05-02] MEDS: hydrOXYzine PAMOATE 50 MG CAPSULE (FP) PO PRN (21:13)
[2022-05-03] MEDS: BUPRENORPHINE/NALOXONE 4 MG/1 MG FILM PACKET SL SCH ×2 (07:08→18:13)
[2022-05-03] MEDS: GABAPENTIN 300 MG CAPSULE PO SCH ×3 (07:08→21:12)
[2022-05-03] MEDS: PRENATAL VITAMINS W/ FOLIC ACID TABLET (FP) PO SCH (09:50)
[2022-05-03] MEDS: VENLAFAXINE HCL 75 MG E.R. CAPSULES PO SCH (09:50)
[2022-05-03] MEDS: NICOTINE 10 MG CARTRIDGE (INHALER) IH PRN (12:42)
[2022-05-03] MEDS: THIAMINE HCL 100 MG TABLET (FP) PO SCH (21:12)
[2022-05-03] MEDS: SUVOREXANT 10 MG TABLET PO PRN (21:12)
[2022-05-04] MEDS: BUPRENORPHINE/NALOXONE 4 MG/1 MG FILM PACKET SL SCH ×2 (08:05→17:57)
[2022-05-04] MEDS: GABAPENTIN 300 MG CAPSULE PO SCH ×3 (08:06→21:40)
[2022-05-04] MEDS: VENLAFAXINE HCL 75 MG E.R. CAPSULES PO SCH (09:59)
[2022-05-04] MEDS: PRENATAL VITAMINS W/ FOLIC ACID TABLET (FP) PO SCH (09:59)
[2022-05-04] MEDS: NICOTINE 10 MG CARTRIDGE (INHALER) IH PRN ×2 (12:27→17:59)
[2022-05-04] MEDS: THIAMINE HCL 100 MG TABLET (FP) PO SCH (21:40)
[2022-05-04] MEDS: hydrOXYzine PAMOATE 50 MG CAPSULE (FP) PO PRN (21:40)
[2022-05-04] MEDS: SUVOREXANT 10 MG TABLET PO PRN (21:40)
[2022-05-05] MEDS: GABAPENTIN 300 MG CAPSULE PO SCH ×3 (08:02→21:26)
[2022-05-05] MEDS: BUPRENORPHINE/NALOXONE 4 MG/1 MG FILM PACKET SL SCH ×2 (08:02→17:42)
[2022-05-05] MEDS: VENLAFAXINE HCL 75 MG E.R. CAPSULES PO SCH (10:03)
[2022-05-05] MEDS: PRENATAL VITAMINS W/ FOLIC ACID TABLET (FP) PO SCH (10:03)
[2022-05-05] MEDS: NICOTINE 10 MG CARTRIDGE (INHALER) IH PRN ×2 (14:54→17:42)
[2022-05-05] MEDS: THIAMINE HCL 100 MG TABLET (FP) PO SCH (21:26)
[2022-05-05] MEDS: hydrOXYzine PAMOATE 50 MG CAPSULE (FP) PO PRN (21:26)
[2022-05-05] MEDS: SUVOREXANT 10 MG TABLET PO PRN (21:27)
[2022-05-06] MEDS: GABAPENTIN 300 MG CAPSULE PO SCH ×3 (07:39→21:26)
[2022-05-06] MEDS: BUPRENORPHINE/NALOXONE 4 MG/1 MG FILM PACKET SL SCH ×2 (07:39→17:58)
[2022-05-06] MEDS: VENLAFAXINE HCL 75 MG E.R. CAPSULES PO SCH (09:41)
[2022-05-06] MEDS: PRENATAL VITAMINS W/ FOLIC ACID TABLET (FP) PO SCH (09:41)
[2022-05-06] MEDS: NICOTINE 10 MG CARTRIDGE (INHALER) IH PRN ×2 (15:34→21:27)
[2022-05-06] MEDS: hydrOXYzine PAMOATE 50 MG CAPSULE (FP) PO PRN (21:26)
[2022-05-06] MEDS: SUVOREXANT 10 MG TABLET PO PRN (21:26)
[2022-05-06] MEDS: THIAMINE HCL 100 MG TABLET (FP) PO SCH (21:26)
[2022-05-07] MEDS: BUPRENORPHINE/NALOXONE 4 MG/1 MG FILM PACKET SL SCH ×2 (07:33→18:05)
[2022-05-07] MEDS: GABAPENTIN 300 MG CAPSULE PO SCH ×3 (07:33→21:20)
[2022-05-07] MEDS: PRENATAL VITAMINS W/ FOLIC ACID TABLET (FP) PO SCH (10:17)
[2022-05-07] MEDS: VENLAFAXINE HCL 75 MG E.R. CAPSULES PO SCH (10:17)
[2022-05-07] MEDS: NICOTINE 10 MG CARTRIDGE (INHALER) IH PRN (18:05)
[2022-05-07] MEDS: THIAMINE HCL 100 MG TABLET (FP) PO SCH (21:20)
[2022-05-07] MEDS: SUVOREXANT 10 MG TABLET PO PRN (21:20)
[2022-05-07] MEDS: hydrOXYzine PAMOATE 50 MG CAPSULE (FP) PO PRN (21:20)
[2022-05-08] MEDS: GABAPENTIN 300 MG CAPSULE PO SCH ×3 (07:38→21:41)
[2022-05-08] MEDS: BUPRENORPHINE/NALOXONE 4 MG/1 MG FILM PACKET SL SCH ×2 (07:38→18:39)
[2022-05-08] MEDS: VENLAFAXINE HCL 75 MG E.R. CAPSULES PO SCH (10:20)
[2022-05-08] MEDS: PRENATAL VITAMINS W/ FOLIC ACID TABLET (FP) PO SCH (10:20)
[2022-05-08] MEDS: NICOTINE 10 MG CARTRIDGE (INHALER) IH PRN ×2 (14:20→21:40)
[2022-05-08] MEDS: THIAMINE HCL 100 MG TABLET (FP) PO SCH (21:41)
[2022-05-08] MEDS: hydrOXYzine PAMOATE 50 MG CAPSULE (FP) PO PRN (21:41)
[2022-05-08] MEDS: SUVOREXANT 10 MG TABLET PO PRN (21:41)
[2022-05-09] MEDS: GABAPENTIN 300 MG CAPSULE PO SCH ×3 (07:45→21:33)
[2022-05-09] MEDS: BUPRENORPHINE/NALOXONE 4 MG/1 MG FILM PACKET SL SCH ×2 (07:46→18:03)
[2022-05-09] MEDS: VENLAFAXINE HCL 75 MG E.R. CAPSULES PO SCH (09:51)
[2022-05-09] MEDS: PRENATAL VITAMINS W/ FOLIC ACID TABLET (FP) PO SCH (09:51)
[2022-05-09] MEDS: NICOTINE 10 MG CARTRIDGE (INHALER) IH PRN ×2 (16:58→21:33)
[2022-05-09] MEDS: THIAMINE HCL 100 MG TABLET (FP) PO SCH (21:33)
[2022-05-09] MEDS: hydrOXYzine PAMOATE 50 MG CAPSULE (FP) PO PRN (21:33)
[2022-05-09] MEDS: SUVOREXANT 10 MG TABLET PO PRN (21:33)
[2022-05-10] MEDS: BUPRENORPHINE/NALOXONE 4 MG/1 MG FILM PACKET SL SCH ×2 (07:44→18:15)
[2022-05-10] MEDS: GABAPENTIN 300 MG CAPSULE PO SCH ×3 (07:45→21:19)
[2022-05-10] MEDS: PRENATAL VITAMINS W/ FOLIC ACID TABLET (FP) PO SCH (09:50)
[2022-05-10] MEDS: VENLAFAXINE HCL 75 MG E.R. CAPSULES PO SCH (09:50)
[2022-05-10] MEDS: THIAMINE HCL 100 MG TABLET (FP) PO SCH (21:19)
[2022-05-10] MEDS: SUVOREXANT 10 MG TABLET PO PRN (21:19)
[2022-05-10] MEDS: NICOTINE 10 MG CARTRIDGE (INHALER) IH PRN (21:20)
[2022-05-10] MEDS: hydrOXYzine PAMOATE 50 MG CAPSULE (FP) PO PRN (21:21)
[2022-05-11] MEDS: BUPRENORPHINE/NALOXONE 4 MG/1 MG FILM PACKET SL SCH ×2 (06:38→18:50)
[2022-05-11] MEDS: GABAPENTIN 300 MG CAPSULE PO SCH ×3 (06:38→21:21)
[2022-05-11] MEDS: NICOTINE 10 MG CARTRIDGE (INHALER) IH PRN (09:44)
[2022-05-11] MEDS: PRENATAL VITAMINS W/ FOLIC ACID TABLET (FP) PO SCH (09:44)
[2022-05-11] MEDS: VENLAFAXINE HCL 75 MG E.R. CAPSULES PO SCH (09:44)
[2022-05-11] MEDS: THIAMINE HCL 100 MG TABLET (FP) PO SCH (21:20)
[2022-05-11] MEDS: hydrOXYzine PAMOATE 50 MG CAPSULE (FP) PO PRN (21:21)
[2022-05-11] MEDS: SUVOREXANT 10 MG TABLET PO PRN (21:21)
[2022-05-12] MEDS: BUPRENORPHINE/NALOXONE 4 MG/1 MG FILM PACKET SL SCH ×2 (07:42→18:11)
[2022-05-12] MEDS: GABAPENTIN 300 MG CAPSULE PO SCH ×3 (07:42→21:04)
[2022-05-12] MEDS: NICOTINE 10 MG CARTRIDGE (INHALER) IH PRN (08:57)
[2022-05-12] MEDS: PRENATAL VITAMINS W/ FOLIC ACID TABLET (FP) PO SCH (09:45)
[2022-05-12] MEDS: VENLAFAXINE HCL 75 MG E.R. CAPSULES PO SCH (09:45)
[2022-05-12] MEDS: hydrOXYzine PAMOATE 50 MG CAPSULE (FP) PO PRN (21:04)
[2022-05-12] MEDS: THIAMINE HCL 100 MG TABLET (FP) PO SCH (21:04)
[2022-05-12] MEDS: SUVOREXANT 10 MG TABLET PO PRN (21:05)
[2022-05-13] MEDS: BUPRENORPHINE/NALOXONE 4 MG/1 MG FILM PACKET SL SCH ×2 (07:46→18:06)
[2022-05-13] MEDS: GABAPENTIN 300 MG CAPSULE PO SCH ×3 (07:46→21:09)
[2022-05-13 08:31] VITALS: RESP 17
[2022-05-13] MEDS: PRENATAL VITAMINS W/ FOLIC ACID TABLET (FP) PO SCH (09:43)
[2022-05-13] MEDS: VENLAFAXINE HCL 75 MG E.R. CAPSULES PO SCH (09:43)
[2022-05-13] MEDS: NICOTINE 10 MG CARTRIDGE (INHALER) IH PRN ×2 (12:29→21:10)
[2022-05-13] MEDS: THIAMINE HCL 100 MG TABLET (FP) PO SCH (21:08)
[2022-05-13] MEDS: SUVOREXANT 10 MG TABLET PO PRN (21:09)
[2022-05-13] MEDS: hydrOXYzine PAMOATE 50 MG CAPSULE (FP) PO PRN (21:09)
[2022-05-14] MEDS: BUPRENORPHINE/NALOXONE 4 MG/1 MG FILM PACKET SL SCH (07:51)
[2022-05-14] MEDS: GABAPENTIN 300 MG CAPSULE PO SCH (07:51)
[2022-05-14 08:45] VITALS: BP 106/66; PULSE 72; TEMP 98
[2022-05-14] MEDS: VENLAFAXINE HCL 75 MG E.R. CAPSULES PO SCH (09:10)
[2022-05-14] MEDS: PRENATAL VITAMINS W/ FOLIC ACID TABLET (FP) PO SCH (09:10)
[2022-05-14] MEDS: NICOTINE 10 MG CARTRIDGE (INHALER) IH PRN (09:10)
== END 2022-05-14 09:36 | disposition home or self-care (01) | DRG 772 ==
LOC: YASAS 15:42 → Y3E 15:43
PROVIDERS: ADMIT Allergy & Immunology; ATTEND Psychiatry & Neurology Pain Medicine
PROC: HZ42ZZZ Group Counseling for Substance Abuse Treatment, Cognitive-Behavioral (ICD-10-PCS; principal; 2022-04-17)
DX: F11.20 Opioid dependence, uncomplicated (principal); F17.210 Nicotine dependence, cigarettes, uncomplicated; F19.280 Other psychoactive substance dependence with psychoactive substance-induced anxiety disorder; F19.282 Other psychoactive substance dependence with psychoactive substance-induced sleep disorder; F40.10 Social phobia, unspecified; F41.9 Anxiety disorder, unspecified; J45.20 Mild intermittent asthma, uncomplicated

== ENCOUNTER 2023-04-27 11:51 | Inpatient (IN) | payer OTHER ==
[2023-04-27 12:19] VITALS: BMI 19.5
[2023-04-27] MEDS ORDERED: IBUPROFEN 400 MG TABLET (FP) PO PRN (13:15)
[2023-04-27] MEDS ORDERED: NALOXONE HCL 0.4 MG/ML VIAL IM PRN (13:15)
[2023-04-27] MEDS ORDERED: ONDANSETRON *ODT* 4 MG TABLET SL PRN (13:15)
[2023-04-27] MEDS ORDERED: BISMUTH SUBSALICYLATE 524 MG/30 ML PO PRN (13:15)
[2023-04-27] MEDS ORDERED: MAGNESIUM HYDROX 2400MG/30ML ORAL SUSPENSION 30 ML CUP PO PRN (13:15)
[2023-04-27] MEDS ORDERED: guaiFENesin 600 MG TABLET.ER (FP) PO PRN (13:15)
[2023-04-27] MEDS ORDERED: BENZOCAINE/MENTHOL (CHLORASEPTIC ) LOZENGE MM PRN (13:15)
[2023-04-27] MEDS ORDERED: POLYETHYLENE GLYCOL (HEALTHYLAX) 3350 17 GM PACKET PO PRN (13:15)
[2023-04-27] MEDS ORDERED: LOPERAMIDE HCL 2 MG CAPSULE PO PRN (13:15)
[2023-04-27] MEDS ORDERED: NALOXONE HCL (KLOXXADO) 8 MG SPRAY NS PRN (13:15)
[2023-04-27] MEDS ORDERED: BENZONATATE 200 MG CAPSULE PO PRN (13:15)
[2023-04-27] MEDS ORDERED: MAG HYDROX/AL HYDROX/SIMETH 30 ML UNIT-DOSE CUP PO PRN (13:15)
[2023-04-27] MEDS ORDERED: methaDONE HCL 10 MG TABLET (FOR DETOX USE ONLY) ONE (13:29)
[2023-04-27] MEDS ORDERED: methaDONE HCL 10 MG TABLET (FOR DETOX USE ONLY) PO ONE (13:45)
[2023-04-27] MEDS: hydrOXYzine PAMOATE 25 MG CAPSULE (FP) PO PRN (14:31)
[2023-04-27] MEDS: cloNIDine HCL 0.1 MG TABLET PO PRN (14:31)
[2023-04-27] MEDS ORDERED: ALBUTEROL SO4 HFA INHALER IH PRN (20:12)
[2023-04-27] MEDS: MELATONIN 5 MG TABLETS PO SCH (21:24)
[2023-04-27] MEDS: THIAMINE HCL 100 MG TABLET (FP) PO SCH (21:24)
[2023-04-27] MEDS: diazePAM 5 MG TABLET PO PRN (21:24)
[2023-04-28] MEDS: diazePAM 5 MG TABLET PO PRN ×5 (03:53→22:00)
[2023-04-28] MEDS: ACETAMINOPHEN 325 MG TABLET (FP) PO PRN (05:55)
[2023-04-28] MEDS: METHOCARBAMOL 500 MG TABLET PO PRN ×2 (05:55→21:59)
[2023-04-28] MEDS: cloNIDine HCL 0.1 MG TABLET PO PRN ×3 (05:55→17:36)
[2023-04-28] MEDS: PRENATAL VITAMINS W/ FOLIC ACID TABLET (FP) PO SCH (10:17)
[2023-04-28] MEDS: NICOTINE 14 MG/24 HOURS TOPICAL PATCH TD SCH (10:18)
[2023-04-28] MEDS: MELATONIN 5 MG TABLETS PO SCH (21:58)
[2023-04-28] MEDS: hydrOXYzine PAMOATE 25 MG CAPSULE (FP) PO PRN (21:59)
[2023-04-28] MEDS: THIAMINE HCL 100 MG TABLET (FP) PO SCH (21:59)
[2023-04-28] MEDS: NICOTINE POLACRILEX 2 MG GUM BUC PRN (22:13)
[2023-04-28] MEDS: MELATONIN 5 MG TABLETS PO PRN (23:58)
[2023-04-29] MEDS: diazePAM 5 MG TABLET PO PRN ×2 (05:49→09:51)
[2023-04-29] MEDS: hydrOXYzine PAMOATE 25 MG CAPSULE (FP) PO PRN ×2 (09:04→22:33)
[2023-04-29] MEDS: METHOCARBAMOL 500 MG TABLET PO PRN ×2 (09:04→16:50)
[2023-04-29] MEDS ORDERED: clonazePAM 0.5 MG ODT TABLETS SL PRN (09:33)
[2023-04-29] MEDS ORDERED: methaDONE HCL 10 MG TABLET (FOR DETOX USE ONLY) PO ONE (10:00)
[2023-04-29] MEDS: NICOTINE 14 MG/24 HOURS TOPICAL PATCH TD SCH (10:52)
[2023-04-29] MEDS: PRENATAL VITAMINS W/ FOLIC ACID TABLET (FP) PO SCH (10:52)
[2023-04-29] MEDS: NICOTINE POLACRILEX 2 MG GUM BUC PRN ×2 (11:45→22:34)
[2023-04-29] MEDS: cloNIDine HCL 0.1 MG TABLET PO PRN ×2 (13:07→19:04)
[2023-04-29] MEDS ORDERED: VENLAFAXINE HCL 37.5 MG E.R. CAPSULE PO ONE (14:00)
[2023-04-29] MEDS: clonazePAM 0.5 MG ODT TABLETS SL PRN ×2 (14:03→19:05)
[2023-04-29] MEDS: THIAMINE HCL 100 MG TABLET (FP) PO SCH (22:33)
[2023-04-29] MEDS: MELATONIN 5 MG TABLETS PO SCH (22:33)
[2023-04-30] MEDS: clonazePAM 0.5 MG ODT TABLETS SL PRN ×4 (04:35→21:48)
[2023-04-30] MEDS: hydrOXYzine PAMOATE 25 MG CAPSULE (FP) PO PRN ×3 (05:00→19:27)
[2023-04-30] MEDS: METHOCARBAMOL 500 MG TABLET PO PRN ×3 (05:00→19:27)
[2023-04-30] MEDS: IBUPROFEN 600 MG TABLET (FP) PO PRN (05:31)
[2023-04-30] MEDS: NICOTINE 14 MG/24 HOURS TOPICAL PATCH TD SCH (10:05)
[2023-04-30] MEDS: PRENATAL VITAMINS W/ FOLIC ACID TABLET (FP) PO SCH (10:05)
[2023-04-30] MEDS: VENLAFAXINE HCL 37.5 MG E.R. CAPSULE PO SCH (10:06)
[2023-04-30] MEDS: NICOTINE POLACRILEX 2 MG GUM BUC PRN ×3 (17:23→23:51)
[2023-04-30] MEDS: ACETAMINOPHEN 325 MG TABLET (FP) PO PRN (17:23)
[2023-04-30] MEDS: THIAMINE HCL 100 MG TABLET (FP) PO SCH (21:48)
[2023-04-30] MEDS: MELATONIN 5 MG TABLETS PO SCH (21:49)
[2023-04-30] MEDS ORDERED: MELATONIN 5 MG TABLETS PO ONE (23:38)
[2023-04-30] MEDS: MELATONIN 5 MG TABLETS PO PRN (23:38)
[2023-05-01] MEDS: IBUPROFEN 600 MG TABLET (FP) PO PRN (00:33)
[2023-05-01] MEDS: clonazePAM 0.5 MG ODT TABLETS SL PRN ×2 (04:01→10:12)
[2023-05-01 06:40] VITALS: RESP 18
[2023-05-01] MEDS: METHOCARBAMOL 500 MG TABLET PO PRN (07:13)
[2023-05-01] MEDS ORDERED: methaDONE HCL 10 MG TABLET (FOR DETOX USE ONLY) PO ONE (10:00)
[2023-05-01 10:05] VITALS: BP 130/88; PULSE 74; TEMP 97.7
[2023-05-01] MEDS: NICOTINE 14 MG/24 HOURS TOPICAL PATCH TD SCH (10:09)
[2023-05-01] MEDS: VENLAFAXINE HCL 37.5 MG E.R. CAPSULE PO SCH (10:09)
[2023-05-01] MEDS: PRENATAL VITAMINS W/ FOLIC ACID TABLET (FP) PO SCH (10:11)
== END 2023-05-01 11:50 | disposition home or self-care (01) | DRG 773 ==
LOC: YASAS 11:51 → Y3N 13:25
PROVIDERS: ADMIT Allergy & Immunology; ATTEND Surgery
PROC: HZ2ZZZZ Detoxification Services for Substance Abuse Treatment (ICD-10-PCS; principal; 2023-04-27)
DX: F11.23 Opioid dependence with withdrawal (principal); F13.20 Sedative, hypnotic or anxiolytic dependence, uncomplicated; F17.210 Nicotine dependence, cigarettes, uncomplicated; F41.9 Anxiety disorder, unspecified; F40.10 Social phobia, unspecified; F41.0 Panic disorder [episodic paroxysmal anxiety]; G47.00 Insomnia, unspecified; J45.20 Mild intermittent asthma, uncomplicated
CPT/HCPCS: 87635; 87811; 93005; 93010

== ENCOUNTER 2024-03-12 11:08 | Inpatient (IN) | payer OTHER ==
[2024-03-12] MEDS ORDERED: IBUPROFEN 400 MG TABLET (FP) PO PRN (13:07)
[2024-03-12] MEDS ORDERED: BENZONATATE 200 MG CAPSULE PO PRN (13:07)
[2024-03-12] MEDS ORDERED: MAGNESIUM HYDROX 2400MG/30ML ORAL SUSPENSION 30 ML CUP PO PRN (13:07)
[2024-03-12] MEDS ORDERED: ONDANSETRON *ODT* 4 MG TABLET SL PRN (13:07)
[2024-03-12] MEDS ORDERED: MAG HYDROX/AL HYDROX/SIMETH 30 ML UNIT-DOSE CUP PO PRN (13:07)
[2024-03-12] MEDS ORDERED: BISMUTH SUBSALICYLATE 524 MG/30 ML PO PRN (13:07)
[2024-03-12] MEDS ORDERED: POLYETHYLENE GLYCOL (HEALTHYLAX) 3350 17 GM PACKET PO PRN (13:07)
[2024-03-12] MEDS ORDERED: NALOXONE (NARCAN) HCL 4 MG/0.1 ML SPRAY NS PRN (13:07)
[2024-03-12] MEDS ORDERED: LOPERAMIDE HCL 2 MG CAPSULE PO PRN (13:07)
[2024-03-12] MEDS ORDERED: ACETAMINOPHEN 325 MG TABLET (FP) PO PRN (13:07)
[2024-03-12] MEDS ORDERED: guaiFENesin 600 MG TABLET.ER (FP) PO PRN (13:07)
[2024-03-12] MEDS ORDERED: BENZOCAINE/MENTHOL (CHLORASEPTIC ) LOZENGE MM PRN (13:07)
[2024-03-12] MEDS ORDERED: DICYCLOMINE HCL 10 MG CAPSULE PO PRN (13:07)
[2024-03-12] MEDS ORDERED: IBUPROFEN 600 MG TABLET (FP) PO PRN (13:07)
[2024-03-12] MEDS ORDERED: BUPRENORPHINE/NALOXONE 0.5 MG/0.125 MG FILM ONE (13:42)
[2024-03-12] MEDS ORDERED: methaDONE HCL 10 MG TABLET (FOR DETOX USE ONLY) ONE (13:42)
[2024-03-12] MEDS ORDERED: NICOTINE 21 MG/24 HOURS TOPICAL PATCH ONE (13:42)
[2024-03-12] MEDS ORDERED: clonazePAM 0.5 MG ODT TABLETS SL ONE (13:43)
[2024-03-12] MEDS: clonazePAM 0.5 MG ODT TABLETS SL ONE (13:55)
[2024-03-12] MEDS: methaDONE HCL 10 MG TABLET (FOR DETOX USE ONLY) PO ONE (13:55)
[2024-03-12] MEDS: NICOTINE 21 MG/24 HOURS TOPICAL PATCH TD SCH (13:56)
[2024-03-12] MEDS: cloNIDine HCL 0.1 MG TABLET PO SCH (14:13)
[2024-03-12] MEDS: BUPRENORPHINE/NALOXONE 0.5 MG/0.125 MG FILM SL ONE ×2 (14:13→23:05)
[2024-03-12] MEDS: MELATONIN 5 MG TABLETS PO SCH (23:04)
[2024-03-12] MEDS: THIAMINE 100 MG TABLET PO SCH (23:04)
[2024-03-13] MEDS: PRENATAL VITAMINS W/ FOLIC ACID TABLET (FP) PO SCH (10:33)
[2024-03-13] MEDS: BUPRENORPHINE/NALOXONE 0.5 MG/0.125 MG FILM SL SCH (10:35)
[2024-03-13] MEDS: hydrOXYzine PAMOATE 25 MG CAPSULE (FP) PO PRN (10:35)
[2024-03-13] MEDS ORDERED: diazePAM 5 MG TABLET PO PRN (13:13)
[2024-03-13] MEDS: diazePAM 5 MG TABLET PO PRN (14:09)
[2024-03-13] MEDS: diazePAM 5 MG TABLET PO SCH (17:43)
[2024-03-13] MEDS: GABAPENTIN 300 MG CAPSULE PO SCH (22:52)
[2024-03-13] MEDS: METHOCARBAMOL 500 MG TABLET PO PRN (22:52)
[2024-03-14] MEDS: FLUoxetine HCL 20 MG CAPSULE PO SCH (10:15)
[2024-03-14] MEDS: BUPRENORPHINE/NALOXONE 2 MG/0.5 MG FILM PACKET SL SCH (10:15)
[2024-03-14] MEDS: methaDONE HCL 10 MG TABLET (FOR DETOX USE ONLY) PO ONE (10:16)
[2024-03-14] MEDS: NICOTINE POLACRILEX 2 MG GUM BUC PRN (17:52)
[2024-03-14] MEDS: GABAPENTIN 300 MG CAPSULE PO SCH (22:04)
[2024-03-15] MEDS: diazePAM 5 MG TABLET PO SCH (05:47)
[2024-03-15 06:28] VITALS: PULSE 90; RESP 17
[2024-03-15 09:14] VITALS: BP 115/68; TEMP 98
[2024-03-15] MEDS: BUPRENORPHINE/NALOXONE 4 MG/1 MG FILM PACKET SL SCH (09:24)
[2024-03-15] MEDS ORDERED: NALOXONE (NYS OPIOID OVERDOSE PROGRAM) 4 MG/0.1 ML SPRAY NS SCH (11:30)
[2024-03-15 12:28] LABS: HEMATOCRIT 48.4 % (35.4-49); HEMOGLOBIN 15.6 GM/dL (11.7-16.9); MCH 27.8 pg (25.7-33.7); MCHC 32.3 g/dl (32.0-35.9); MEAN CELL VOLUME 86.1 fl (80-96); MEAN PLT VOLUME 10.2 fl (7.5-11.1); PLATELET COUNT 182 10^3/uL (134-434); RBC 5.61 M/mm3 (4.00-5.60); WHITE BLOOD COUNT 5.9 K/mm3 (4.0-10.0)
[2024-03-15 12:37] LABS: CALCIUM 9.4 mg/dL (8.5-10.1)
[2024-03-15 12:41] LABS: CREATININE 0.7 mg/dL (0.55-1.3)
[2024-03-16] MEDS ORDERED: diazePAM 5 MG TABLET PO SCH (06:00)
[2024-03-16] MEDS ORDERED: BUPRENORPHINE/NALOXONE 8 MG/2 MG FILM PACKET SL SCH (10:00)
[2024-03-16] MEDS ORDERED: methaDONE HCL 10 MG TABLET (FOR DETOX USE ONLY) PO ONE (10:00)
[2024-03-17] MEDS ORDERED: diazePAM 5 MG TABLET PO ONE (06:00)
[2024-03-17] MEDS ORDERED: BUPRENORPHINE/NALOXONE 8 MG/2 MG FILM PACKET SL SCH (10:00)
== END 2024-03-15 11:01 | disposition home or self-care (01) | DRG 773 ==
LOC: YASAS 11:08 → Y3N 13:28
PROVIDERS: ADMIT Allergy & Immunology; ATTEND Surgery
PROC: HZ2ZZZZ Detoxification Services for Substance Abuse Treatment (ICD-10-PCS; principal; 2024-03-12)
DX: F11.23 Opioid dependence with withdrawal (principal); F10.230 Alcohol dependence with withdrawal, uncomplicated; F13.20 Sedative, hypnotic or anxiolytic dependence, uncomplicated; F17.210 Nicotine dependence, cigarettes, uncomplicated; F19.24 Other psychoactive substance dependence with psychoactive substance-induced mood disorder; F19.280 Other psychoactive substance dependence with psychoactive substance-induced anxiety disorder; F40.10 Social phobia, unspecified; F41.9 Anxiety disorder, unspecified; J45.909 Unspecified asthma, uncomplicated
CPT/HCPCS: 36415; 80048; 80305; 85027; 93005; 93010